=== PATIENT | male | born 1970 ===

== ENCOUNTER 2017-06-14 07:31 | Inpatient (IN) | payer MEDICARE, OTHER ==
[2017-06-14 07:32] VITALS: BMI 19.5
[2017-06-14] MEDS ORDERED: Sodium Chloride 0.9% 1,000 ML IV ONE ×3 (07:45→20:00)
[2017-06-14 08:11] LABS: BASO # 0.1 K/uL (0.0-0.2); BASO % 0.3 % (0.0-2.0); EOS # 0.5 K/uL (0.0-0.7); HEMATOCRIT 46.4 % (35.0-51.0); LYMPH # 0.6 K/uL (1.0-4.3); LYMPH % 2.8 % (20.0-40.0); MEAN CELL VOLUME 84.6 fL (80.0-94.0); MEAN CORPUSCULAR HGB CONC 33.1 g/dL (33.0-37.0); MEAN PLATELET VOLUME 8.5 fL (7.2-11.7); MONO # 1.3 K/uL (0.0-0.8); MONO % 5.7 % (0.0-10.0); NRBC % 0.1 % (0.0-2.0); PLATELET COUNT 290 K/uL (130-400); RED CELL DISTRIBUTION WIDTH 14.9 % (11.5-14.5); WHITE BLOOD COUNT 22.7 K/uL (4.8-10.8)
[2017-06-14] MEDS ORDERED: Sodium Chloride 0.9% 1,000 ML ONE (08:14)
[2017-06-14] MEDS ORDERED: Iohexol 240 (50 ml) PO ONE (08:19)
[2017-06-14 08:21] LABS: POTASSIUM 4.4 mmol/L (3.6-5.2)
[2017-06-14] MEDS ORDERED: Iohexol 240 (50 ml) ONE (08:22)
[2017-06-14 08:24] LABS: ALB/GLOB RATIO 1.2 (1.0-2.1); BILIRUBIN,TOTAL 0.8 mg/dL (0.2-1.3); CALCIUM 10.1 mg/dl (8.6-10.4); TOTAL PROTEIN 8.7 g/dL (6.3-8.3)
[2017-06-14 08:40] LABS: EOSINOPHIL 4 % (0-4); TOTAL CELLS COUNTED 100
[2017-06-14 08:41] LABS: NEUTROPHIL 79 % (50-75)
[2017-06-14] MEDS ORDERED: Lidocaine 2% Inj (20ml) ONE (10:26)
[2017-06-14] MEDS ORDERED: Iodixanol 320 MG/ML 100 ML BOTTLE IV ONE (10:26)
[2017-06-14 10:33] LABS: RBC URINE < 1 /hpf (0-3); URINE BILIRUBIN NEGATIVE (NEGATIVE); URINE BLOOD NEGATIVE (NEGATIVE); URINE COLOR Yellow (YELLOW); URINE GLUCOSE (UA) NORMAL (Normal); URINE KETONE NEGATIVE (NEGATIVE); URINE LEUKOCYTE ESTERASE NEG Leu/uL (Negative); URINE PROTEIN NEGATIVE (NEGATIVE); URINE UROBILINOGEN NORMAL mg/dL (0.2-1.0); WBC URINE < 1 /hpf (0-5)
--- NOTE | 2017-06-14 11:42 | CT ---
PROCEDURE: CT Abdomen and Pelvis with contrast HISTORY: abd pain - h/o liver transplant and ileostomy COMPARISON: Unenhanced and pelvis CT exam dated 09/13/2016. TECHNIQUE: Helical CT of the abdomen and pelvis was performed following oral contrast administration. Intravenous contrast was not administered as per referring physician request. Contrast dose: None Radiation dose: Total exam DLP = 200.41 mGy-cm. This CT exam was performed using one or more of the following dose reduction techniques: Automated exposure control, adjustment of the mA and/or kV according to patient size, and/or use of iterative reconstruction technique. FINDINGS: LOWER THORAX: Unremarkable. LIVER: No evidence to suggest cirrhosis. Overall size remains normal. Two Biliary stents are appreciated originating at the common hepatic duct region and terminating in the 2nd portion the duodenum in the interval. The portal vein remains prominent. GALLBLADDER AND BILE DUCTS: Likely surgically absent. Clinically correlate. PANCREAS: Unremarkable. No gross lesion or ductal dilatation. SPLEEN: Unremarkable. ADRENALS: Unremarkable. No mass. KIDNEYS AND URETERS: Unremarkable. No hydronephrosis. No solid mass. VASCULATURE: Unremarkable. No aortic aneurysm. BOWEL: Prior total colectomy again evident with right lower quadrant ileostomy. No suspicious bowel findings identified in the interval. APPENDIX: Status post total colectomy. PERITONEUM: Unremarkable. No free fluid. No free air. LYMPH NODES: Unremarkable. No enlarged lymph nodes. BLADDER: Unremarkable. REPRODUCTIVE: Unremarkable. BONES: No acute fracture. OTHER FINDINGS: None. IMPRESSION: No definite acute abdominal findings are appreciate in this limited exam given lack of intravenous contrast agents. There is no bowel obstruction status post total colectomy with functional right lower quadrant ileostomy. A passes small-bowel loops are stable in appearance. Interval double biliary stent placement as discussed above. Prior cholecystectomy suspected.
[2017-06-14] MEDS ORDERED: Piperacillin/Tazobact 3.375 GM in Sodium Chloride 100 ML IVPB STA (12:31)
--- NOTE | 2017-06-14 13:01 | C.PDOC ---
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 Pt states that he ate home cooked food last night. Otherwise, denies abdominal pain, fever, chest pain, shortness of breath, hematuria, or dysuria. Chief Complaint (Nursing): Abdominal Pain History Per: Patient History/Exam Limitations: no limitations Onset/Duration Of Symptoms: Hrs Current Symptoms Are (Timing): Still Present Severity: None Pain Scale Rating Of: 0 Radiation Of Pain To:: None Associated Symptoms: Nausea, Vomiting. denies: Fever, Chills, Diarrhea, Loss Of Appetite, Back Pain, Chest Pain, Constipation, Urinary Symptoms Exacerbating Factors: None Alleviating Factors: None Recent travel outside of the [place]: No Additional History Per: Patient Past Medical History Reviewed: Historical Data, Nursing Documentation, Vital Signs Vital Signs: Last Vital Signs Temp 98.2 F 06/14/17 17:04 Pulse 67 06/14/17 17:04 Resp 20 06/14/17 17:04 BP 93/59 L 06/14/17 17:04 Pulse Ox 98 06/14/17 17:04 - Medical History PMH: Anemia, Anxiety, Arthritis, Depression, Diabetes, Fractures (RIBS), HTN Denies: Chronic Kidney Disease Surgical History: Endoscopy - [facility] Procedures ATTACH PEDICLE GRAFT NEC (01/02/14) CLOSED ENDOSCOPIC BIOPSY OF LARGE INTESTINE (02/17/14) ENDOSC POLYPECTOMY OF LG INTEST (02/17/14) EXCIS DEBRIDE OF WOUND, INFECT, OR BURN (01/02/14) NONEXCIS DEBRID OF WOUND, INFECT, OR BURN (01/02/14) PACKED CELL TRANSFUSION (08/16/14) Family History: States: Unknown Family Hx - Social History Hx Tobacco Use: No Hx Alcohol Use: No Hx Substance Use: No - Immunization History Hx Tetanus Toxoid Vaccination: Yes Hx Influenza Vaccination: Yes Hx Pneumococcal Vaccination: Yes Review Of Systems Except As Marked, All Systems Reviewed And Found Negative. Constitutional: Negative for: Fever, Chills Cardiovascular: Negative for: Chest Pain, Palpitations Respiratory: Negative for: Cough, Shortness of Breath Gastrointestinal: Positive for: Nausea, Vomiting. Negative for: Abdominal Pain , Diarrhea, Constipation, Hematemesis Genitourinary: Negative for: Dysuria, Frequency, Hematuria Musculoskeletal: Negative for: Back Pain Physical Exam - Physical Exam Appears: Non-toxic, No Acute Distress Skin: Normal Color, Warm, Dry Head: Atraumatic, Normacephalic Eye(s): bilateral: Normal Inspection Oral Mucosa: Moist Neck: Normal ROM, Supple Chest: Symmetrical Cardiovascular: Rhythm Regular, No Murmur Respiratory: Normal Breath Sounds, No Rales, No Rhonchi, No Wheezing Gastrointestinal/Abdominal: Soft, No Tenderness, Other (ileostomy bag intact, no surrounding erythema) Back: No CVA Tenderness Extremity: Normal ROM Neurological/Psych: Oriented x3, Normal Speech, Normal Cognition ED Course And Treatment - Laboratory Results Result Diagrams: 06/14/17 08:05 06/14/17 08:05 ECG: Interpreted By Me, Viewed By Me ECG Rhythm: Sinus Rhythm ECG Interpretation: No Acute Changes Interpretation Of ECG: Normal axis. Normal intervals. Rate From EC (bpm) O2 Sat by Pulse Oximetry: 94 - CT Scan/US Abd & Pelvis CT Other Rad Studies (CT/US): Read By Radiologist, Radiology Report Reviewed CT/US Interpretation: Accession No. : [id number]. Patient Name / ID : ALEISHA Mejias / [id number]. Exam Date : 06/14/2017 10:47:39 ( Approved ). Study Comment : Sex / Age : M / 46Y. Creator : Evan Calhoun MD. Dictator : Evan Calhoun MD. Plumber Cub : Cut Off Machine Helper : Evan Calhoun MD. Approver2 : Report Date : 06/14/2017 11:40:47. My Comment : . PROCEDURE: CT Abdomen and Pelvis with contrast. HISTORY: abd pain - h/o liver transplant and ileostomy. COMPARISON: Unenhanced and pelvis CT exam dated 09/13/2016. TECHNIQUE: Helical CT of the abdomen and pelvis was performed following oral contrast administration. Intravenous contrast was not administered as per referring physician request. Contrast dose: None. Radiation dose: Total exam DLP = 200.41 mGy-cm. This CT exam was performed using one or more of the following dose reduction techniques: Automated exposure control, adjustment of the mA and/or kV according to patient size, and/ or use of iterative reconstruction technique. FINDINGS: LOWER THORAX: Unremarkable. LIVER: No evidence to suggest cirrhosis. Overall size remains normal. Two Biliary stents are appreciated originating at the common hepatic duct region and terminating in the 2nd portion the duodenum in the interval. The portal vein remains prominent. GALLBLADDER AND BILE DUCTS: Likely surgically absent. Clinically correlate. PANCREAS: Unremarkable. No gross lesion or ductal dilatation. SPLEEN: Unremarkable. ADRENALS: Unremarkable. No mass. KIDNEYS AND URETERS: Unremarkable. No hydronephrosis. No solid mass. VASCULATURE: Unremarkable. No aortic aneurysm. BOWEL: Prior total colectomy again evident with right lower quadrant ileostomy. No suspicious bowel findings identified in the interval. APPENDIX: Status post total colectomy. PERITONEUM: Unremarkable. No free fluid. No free air. LYMPH NODES : Unremarkable. No enlarged lymph nodes. BLADDER: Unremarkable. REPRODUCTIVE : Unremarkable. BONES: No acute fracture. OTHER FINDINGS: None. IMPRESSION : No definite acute abdominal findings are appreciate in this limited exam given lack of intravenous contrast agents. There is no bowel obstruction status post total colectomy with functional right lower quadrant ileostomy. A passes small-bowel loops are stable in appearance. Interval double biliary stent placement as discussed above. Prior cholecystectomy suspected. Medical Decision Making Medical Decision Making: Blood work, urinalysis, EKG, Abd & Pelvis CT scan ordered and reviewed. Patient was given Omnipaque, Pepcid, Zofran, and IV fluids. Case discussed with Dr. Yamilet Koch, covering for Dr. Bradford, was made aware of elevated WBC and bandemia. Will give Antibiotics and admit under Dr. Yamilet Koch. Disposition - Disposition Disposition: HOSPITALIZED Disposition Time: 12:20 Condition: STABLE - Clinical Impression Clinical Impression: Vomiting, Leukocytosis - Scribe Statement The provider has reviewed the documentation as recorded by the Letty Koch All medical record entries made by the Anastasiiaible were at my direction and personally dictated by me. I have reviewed the chart and agree that the record accurately reflects my personal performance of the history, physical exam, medical decision making, and the department course for this patient. I have also personally directed, reviewed, and agree with the discharge instructions and disposition.
[2017-06-14] MEDS ORDERED: Piperacillin/Tazobact 3.375 gm 100 ML IVPB ONE (13:02)
[2017-06-14 15:02] VITALS: RESP 20
--- NOTE | 2017-06-14 18:57 | CP.PCM.HP ---
Present on Admission - Present on Admission Any Indicators Present on Admission: No Past Patient History - Infectious Disease Hx of Infectious Diseases: None - Past Medical History & Family History Past Medical History?: Yes - Past Social History Smoking Status: Never Smoked - CARDIAC Hx Hypertension: Yes - PULMONARY Hx Respiratory Disorders: No - NEUROLOGICAL Hx Neurological Disorder: No - HEENT Hx HEENT Problems: No - RENAL Hx Chronic Kidney Disease: No - ENDOCRINE/METABOLIC Hx Endocrine Disorders: Yes Hx Diabetes Mellitus Type 1: Yes - HEMATOLOGICAL/ONCOLOGICAL Hx Anemia: Yes - INTEGUMENTARY Hx Dermatological Problems: No - MUSCULOSKELETAL/RHEUMATOLOGICAL Hx Arthritis: Yes Hx Fractures: Yes (RIBS) - GASTROINTESTINAL Hx Gastrointestinal Disorders: Yes Hx Colitis: Yes (DX. 10 YEARS AGO) Hx Liver Failure: Yes Other/Comment: ulcerative colitis - GENITOURINARY/GYNECOLOGICAL Hx Genitourinary Disorders: No - PSYCHIATRIC Hx Anxiety: Yes Hx Depression: Yes Hx Substance Use: No - SURGICAL HISTORY Hx Bile Duct Stent: Yes Hx Liver Transplant: Yes Other/Comment: illeostomy - ANESTHESIA Hx Anesthesia: Yes Hx Anesthesia Reactions: No Hx Malignant Hyperthermia: No Meds Allergies/Adverse Reactions: Allergies Allergy/AdvReac Type Severity Reaction Status Date / Time No Known Allergies Allergy Verified 09/13/16 05:57 Physical Exam - Constitutional Appears: Well - Head Exam Head Exam: ATRAUMATIC, NORMAL INSPECTION, NORMOCEPHALIC - Eye Exam Eye Exam: EOMI, Normal appearance, PERRL Pupil Exam: NORMAL ACCOMODATION, PERRL - ENT Exam ENT Exam: Mucous Membranes Moist, Normal Exam - Neck Exam Neck exam: Positive for: Normal Inspection - Respiratory Exam Respiratory Exam: Decreased Breath Sounds - Cardiovascular Exam Cardiovascular Exam: REGULAR RHYTHM, +S1, +S2 - GI/Abdominal Exam GI & Abdominal Exam: Diminished Bowel Sounds, Soft - Rectal Exam Rectal Exam: Deferred Results - Vital Signs Recent Vital Signs: Last Vital Signs Temp 98.2 F 06/14/17 17:04 Pulse 67 06/14/17 17:04 Resp 20 06/14/17 17:04 BP 93/59 L 06/14/17 17:04 Pulse Ox 94 L 06/14/17 18:35 - Labs Result Diagrams: 06/14/17 08:05 06/14/17 08:05 Labs: Laboratory Results - last 24 hr 06/14/17 06/14/17 06/14/17 07:49 08:05 08:05 WBC 22.7 H RBC 5.48 Hgb 15.4 Hct 46.4 MCV 84.6 D MCH 28.0 MCHC 33.1 RDW 14.9 H Plt Count 290 MPV 8.5 Neut % (Auto) 89.2 H Lymph % (Auto) 2.8 L [place] % (Auto) 5.7 Eos % (Auto) 2.0 Baso % (Auto) 0.3 Neut # 20.2 H Lymph # 0.6 L [place] # 1.3 H Eos # 0.5 Baso # 0.1 Neutrophils % (Manual) 79 H Band Neutrophils % 12 H* Lymphocytes % (Manual) 2 L Monocytes % (Manual) 3 Eosinophils % (Manual) 4 Platelet Estimate Normal RBC Morphology Normal Sodium 138 Potassium 4.4 Chloride 102 Carbon Dioxide 21 L Anion Gap 19 BUN 37 H Creatinine 1.7 H Est GFR ( Amer) 53 Est GFR (Non-Af Amer) 43 POC Glucose (mg/dL) 171 H Random Glucose 145 H Calcium 10.1 Total Bilirubin 0.8 AST 69 H ALT 85 H Alkaline Phosphatase 143 H Total Protein 8.7 H Albumin 4.8 Globulin 4.0 H Albumin/Globulin Ratio 1.2 Lipase 130 Urine Color Urine Clarity Urine pH Ur Specific [place] Urine Protein Urine Glucose (UA) Urine Ketones Urine Blood Urine Nitrate Urine Bilirubin Urine Urobilinogen Ur Leukocyte Esterase Urine WBC (Auto) Urine RBC (Auto) 06/14/17 06/14/17 10:18 16:44 WBC RBC Hgb Hct MCV MCH MCHC RDW Plt Count MPV Neut % (Auto) Lymph % (Auto) [place] % (Auto) Eos % (Auto) Baso % (Auto) Neut # Lymph # [place] # Eos # Baso # Neutrophils % (Manual) Band Neutrophils % Lymphocytes % (Manual) Monocytes % (Manual) Eosinophils % (Manual) Platelet Estimate RBC Morphology Sodium Potassium Chloride Carbon Dioxide Anion Gap BUN Creatinine Est GFR ( Amer) Est GFR (Non-Af Amer) POC Glucose (mg/dL) 145 H Random Glucose Calcium Total Bilirubin AST ALT Alkaline Phosphatase Total Protein Albumin Globulin Albumin/Globulin Ratio Lipase Urine Color Yellow Urine Clarity Clear Urine pH 5.0 Ur Specific [place] 1.012 Urine Protein Negative Urine Glucose (UA) Normal Urine Ketones Negative Urine Blood Negative Urine Nitrate Negative Urine Bilirubin Negative Urine Urobilinogen Normal Ur Leukocyte Esterase Neg Urine WBC (Auto) < 1 Urine RBC (Auto) < 1 Assessment & Plan - Assessment and Plan (Free Text) Plan: This Protonix Lovenox Prograf CellCept Prednisone Patient started on the dosing source of infection is not clear possible gastroenteritis ID consult GI consult Continue same We will monitor the LFT As ordered
[2017-06-14] MEDS ORDERED: Piperacillin/Tazobact 3.375 GM in Sodium Chloride 100 ML IVPB SCH (19:00)
[2017-06-14] MEDS ORDERED: Sodium Chloride 0.9% 500 ML IV ONE (19:11)
[2017-06-14] MEDS: Piperacill/Tazo 3.375gm in Dex 3.375 GM/50 ML BAG IVPB SCH (21:06)
[2017-06-14] MEDS: Insulin Detemir 100 units/ml Vial (Levemir) SC SCH (21:14)
[2017-06-14] MEDS: (Novolog) Insulin Aspart, Recombinant 100 u/ml 10 ml vial SC SCH (21:15)
[2017-06-15] MEDS: Piperacill/Tazo 3.375gm in Dex 3.375 GM/50 ML BAG IVPB SCH ×3 (05:40→22:10)
[2017-06-15 07:01] LABS: BASO % 0.2 % (0.0-2.0); EOS # 0.2 K/uL (0.0-0.7); EOS % 1.3 % (0.0-4.0); HEMATOCRIT 37.9 % (35.0-51.0); LYMPH # 0.8 K/uL (1.0-4.3); LYMPH % 6.4 % (20.0-40.0); MEAN CELL VOLUME 84.7 fL (80.0-94.0); MEAN CORPUSCULAR HGB CONC 33.1 g/dL (33.0-37.0); MEAN PLATELET VOLUME 8.4 fL (7.2-11.7); MONO # 0.5 K/uL (0.0-0.8); MONO % 4.1 % (0.0-10.0); PLATELET COUNT 213 K/uL (130-400); RED CELL DISTRIBUTION WIDTH 14.6 % (11.5-14.5); WHITE BLOOD COUNT 12.7 K/uL (4.8-10.8)
[2017-06-15 07:10] LABS: POTASSIUM 4.2 mmol/L (3.6-5.2)
[2017-06-15 07:12] LABS: BILIRUBIN,DIRECT 0.2 mg/dL (0.0-0.4); BILIRUBIN,TOTAL 0.7 mg/dL (0.2-1.3); CALCIUM 8.6 mg/dl (8.6-10.4); TOTAL PROTEIN 6.8 g/dL (6.3-8.3)
[2017-06-15] MEDS: (Novolog) Insulin Aspart, Recombinant 100 u/ml 10 ml vial SC SCH ×4 (08:19→22:12)
[2017-06-15 09:09] LABS: NEUTROPHIL 78 % (50-75); TOTAL CELLS COUNTED 100
[2017-06-15 09:11] LABS: LARGE PLATELETS PRESENT
[2017-06-15] MEDS: Pantoprazole 40 mg EC Tab PO SCH (09:57)
[2017-06-15] MEDS: Enoxaparin 40 mg Syringe SC SCH ×2 (09:58→10:03)
[2017-06-15] MEDS ORDERED: (Novolog) Insulin Aspart, Recombinant 100 u/ml 10 ml vial SC SCH (10:00)
--- NOTE | 2017-06-15 10:49 | CP.PCM.CON ---
History of Present Illness - History of Present Illness History of Present Illness: ASked to see pt for vomiting. Pt has h/o Ulc colitis, colectomy, Wilsons liver disease- liver transplant- Presents with 2 days nausea and vomiting. Mild mid abdom pain.- constant,. Ate food prepared by someone else .Sees Dr Alexandra at [facility] for liver. Review of Systems - Constitutional Constitutional: absent: Chills, Excessive Sweating, Fever, Increased Appetite, Lethargy, Weight Gain - EENT Nose/Mouth/Throat: absent: Epistaxis, Dental Pain - Cardiovascular Cardiovascular: absent: Chest Pain, Dyspnea - Respiratory Respiratory: absent: Dyspnea, Hemoptysis, Wheezing - Gastrointestinal Gastrointestinal: Change in Bowel Habits, Nausea, Vomiting. absent: Heartburn, Hematemesis, Hematochezia, Loose Stools - Genitourinary Genitourinary: absent: Hematuria - Musculoskeletal Musculoskeletal: absent: Muscle Cramps - Integumentary Integumentary: absent: Rash, Jaundice - Neurological Neurological: absent: Convulsions - Psychiatric Psychiatric: absent: Hallucinations Past Patient History - Infectious Disease Hx of Infectious Diseases: None - Past Medical History & Family History Past Medical History?: Yes - Past Social History Smoking Status: Never Smoked - CARDIAC Hx Cardiac Disorders: No - PULMONARY Hx Respiratory Disorders: No - NEUROLOGICAL Hx Neurological Disorder: No - HEENT Hx HEENT Problems: No - RENAL Hx Chronic Kidney Disease: No - ENDOCRINE/METABOLIC Hx Endocrine Disorders: Yes Hx Diabetes Mellitus Type 1: Yes - HEMATOLOGICAL/ONCOLOGICAL Hx Anemia: Yes - INTEGUMENTARY Hx Dermatological Problems: No - MUSCULOSKELETAL/RHEUMATOLOGICAL Hx Falls: No Hx Fractures: Yes (RIBS) - GASTROINTESTINAL Hx Gastrointestinal Disorders: Yes Hx Colitis: Yes (DX. 10 YEARS AGO) Hx Ileostomy: Yes (2016) Hx Liver Failure: Yes Other/Comment: ulcerative colitis - GENITOURINARY/GYNECOLOGICAL Hx Genitourinary Disorders: No - PSYCHIATRIC Hx Psychophysiologic Disorder: No Hx Substance Use: No - SURGICAL HISTORY Hx Bile Duct Stent: Yes Hx Liver Transplant: Yes (22 yrs ago) Other/Comment: illeostomy - ANESTHESIA Hx Anesthesia: Yes Hx Anesthesia Reactions: No Hx Malignant Hyperthermia: No Meds Allergies/Adverse Reactions: Allergies Allergy/AdvReac Type Severity Reaction Status Date / Time No Known Allergies Allergy Verified 09/13/16 05:57 - Medications Medications: Current Medications Enoxaparin Sodium (Lovenox) 40 mg SC DAILY [facility] Last Admin: 06/15/17 10:03 Dose: Not Given Piperacillin Sod/Tazobactam Sod (Zosyn 3.375 Gm Iv Premix) 3.375 gm in 50 mls @ 100 mls/hr IVPB Q8 [facility] Last Admin: 06/15/17 05:40 Dose: 100 mls/hr Insulin Aspart (Novolog) 0 unit SC [facility] PRN Reason: Protocol Last Admin: 06/15/17 08:19 Dose: Not Given Insulin Detemir (Levemir) 10 unit SC [facility] Last Admin: 06/14/17 21:14 Dose: Not Given Mycophenolate Mofetil (Cellcept) 1,000 mg PO BID [facility] Last Admin: 06/15/17 09:55 Dose: 1,000 mg Pantoprazole Sodium (Protonix Ec Tab) 40 mg PO DAILY [facility] Last Admin: 06/15/17 09:57 Dose: 40 mg Prednisone (Prednisone Tab) 6 mg PO DAILY [facility] Last Admin: 06/15/17 09:56 Dose: 6 mg Tacrolimus (Prograf Cap) 3 mg PO HS [facility] Last Admin: 06/14/17 21:06 Dose: 3 mg Tacrolimus (Prograf Cap) 4 mg PO DAILY [facility] Last Admin: 06/15/17 09:56 Dose: 4 mg Physical Exam - Constitutional Appears: Well - Respiratory Exam Respiratory Exam: Clear to Auscultation Bilateral - Cardiovascular Exam Cardiovascular Exam: RRR - GI/Abdominal Exam GI & Abdominal Exam: Normal Bowel Sounds, Soft. absent: Distended, Guarding, Rebound, Rigid, Tenderness Additional comments: Ostomy present. - Extremities Exam Extremities exam: Negative for: calf tenderness - Neurological Exam Neurological exam: Alert, Oriented x3 Results - Vital Signs Recent Vital Signs: Last Vital Signs Temp 97.6 F 06/15/17 07:54 Pulse 60 06/15/17 07:54 Resp 20 06/15/17 07:54 BP 116/72 06/15/17 07:54 Pulse Ox 100 06/15/17 07:54 - Labs Result Diagrams: 06/15/17 06:55 06/15/17 06:55 Labs: Laboratory Results - last 24 hr 06/14/17 06/14/17 06/15/17 16:44 21:14 06:55 WBC 12.7 H RBC 4.47 Hgb 12.6 D Hct 37.9 MCV 84.7 MCH 28.0 MCHC 33.1 RDW 14.6 H Plt Count 213 MPV 8.4 Neut % (Auto) 88.0 H Lymph % (Auto) 6.4 L [place] % (Auto) 4.1 Eos % (Auto) 1.3 Baso % (Auto) 0.2 Neut # 11.2 H Lymph # 0.8 L [place] # 0.5 Eos # 0.2 Baso # 0.0 Neutrophils % (Manual) 78 H Band Neutrophils % 1 Lymphocytes % (Manual) 15 L Monocytes % (Manual) 6 Platelet Estimate Normal Large Platelets Present Anisocytosis (manual) Slight Sodium Potassium Chloride Carbon Dioxide Anion Gap BUN Creatinine Est GFR ( Amer) Est GFR (Non-Af Amer) POC Glucose (mg/dL) 145 H 117 H Random Glucose Calcium Total Bilirubin Direct Bilirubin AST ALT Alkaline Phosphatase Total Protein Albumin Globulin Albumin/Globulin Ratio 06/15/17 06/15/17 06:55 07:11 WBC RBC Hgb Hct MCV MCH MCHC RDW Plt Count MPV Neut % (Auto) Lymph % (Auto) [place] % (Auto) Eos % (Auto) Baso % (Auto) Neut # Lymph # [place] # Eos # Baso # Neutrophils % (Manual) Band Neutrophils % Lymphocytes % (Manual) Monocytes % (Manual) Platelet Estimate Large Platelets Anisocytosis (manual) Sodium 138 Potassium 4.2 Chloride 106 Carbon Dioxide 18 L Anion Gap 18 BUN 33 H Creatinine 1.7 H Est GFR ( Amer) 53 Est GFR (Non-Af Amer) 43 POC Glucose (mg/dL) 145 H Random Glucose 128 H Calcium 8.6 Total Bilirubin 0.7 Direct Bilirubin 0.2 AST 34 ALT 70 Alkaline Phosphatase 97 Total Protein 6.8 Albumin 3.5 D Globulin 3.4 Albumin/Globulin Ratio 1.0 Assessment & Plan (1) Wilsons disease Assessment and Plan: s/p liver transplant. On anti-rejection meds. Followed at [facility]. Status: Acute (2) Leukocytosis Assessment and Plan: Consider gastroenteritis. Status: Acute (3) Vomiting Assessment and Plan: Gastroenteritis. Status: Acute (4) Abdominal pain Assessment and Plan: Not significant. Status: Acute (5) Anemia Status: Acute (6) Colitis Assessment and Plan: H/o ulc colitis and colectomy Status: Acute
--- NOTE | 2017-06-15 18:52 | CP.PCM.PN ---
Subjective - Date & Time of Evaluation Date of Evaluation: 06/15/17 Time of Evaluation: 07:20 - Subjective Subjective: clinically same Objective - Vital Signs/Intake and Output Vital Signs (last 24 hours): Temp Pulse Resp BP Pulse Ox 98.6 F 76 20 122/78 99 06/15/17 15:00 06/15/17 15:00 06/15/17 15:00 06/15/17 15:00 06/15/17 15:00 - Medications Medications: Current Medications Enoxaparin Sodium (Lovenox) 40 mg SC DAILY [facility] Last Admin: 06/15/17 10:03 Dose: Not Given Piperacillin Sod/Tazobactam Sod (Zosyn 3.375 Gm Iv Premix) 3.375 gm in 50 mls @ 100 mls/hr IVPB Q8 [facility] Last Admin: 06/15/17 13:38 Dose: 100 mls/hr Insulin Aspart (Novolog) 0 unit SC ACHS [facility] PRN Reason: Protocol Last Admin: 06/15/17 17:40 Dose: 1 unit Insulin Detemir (Levemir) 10 unit SC HS [facility] Last Admin: 06/14/17 21:14 Dose: Not Given Mycophenolate Mofetil (Cellcept) 1,000 mg PO BID [facility] Last Admin: 06/15/17 17:40 Dose: 1,000 mg Pantoprazole Sodium (Protonix Ec Tab) 40 mg PO DAILY [facility] Last Admin: 06/15/17 09:57 Dose: 40 mg Prednisone (Prednisone Tab) 6 mg PO DAILY [facility] Last Admin: 06/15/17 09:56 Dose: 6 mg Tacrolimus (Prograf Cap) 3 mg PO HS [facility] Last Admin: 06/14/17 21:06 Dose: 3 mg Tacrolimus (Prograf Cap) 4 mg PO DAILY [facility] Last Admin: 06/15/17 09:56 Dose: 4 mg - Labs Labs: 06/15/17 06:55 06/15/17 06:55
[2017-06-15] MEDS: Insulin Detemir 100 units/ml Vial (Levemir) SC SCH (22:11)
[2017-06-16] MEDS: Piperacill/Tazo 3.375gm in Dex 3.375 GM/50 ML BAG IVPB SCH ×3 (06:30→21:42)
[2017-06-16] MEDS: (Novolog) Insulin Aspart, Recombinant 100 u/ml 10 ml vial SC SCH ×4 (07:50→21:41)
[2017-06-16] MEDS: Enoxaparin 40 mg Syringe SC SCH (10:01)
[2017-06-16] MEDS: Pantoprazole 40 mg EC Tab PO SCH (10:11)
--- NOTE | 2017-06-16 10:21 | CP.PCM.PN ---
Subjective - Date & Time of Evaluation Date of Evaluation: 06/16/17 Time of Evaluation: 09:50 - Subjective Subjective: F/U vomiting. Feels better. Sid is seen with RN. Morel naus, vomiting, SZ, LOC, [place], cough, RB, melena, abdom pain,fever, chills, Objective - Vital Signs/Intake and Output Vital Signs (last 24 hours): Temp Pulse Resp BP Pulse Ox 98.1 F 59 L 20 119/71 100 06/16/17 00:00 06/16/17 00:00 06/16/17 00:00 06/16/17 00:00 06/16/17 00:00 Intake and Output: 06/16/17 06/16/17 06:59 18:59 Intake Total 700 Output Total 220 Balance 480 - Medications Medications: Current Medications Enoxaparin Sodium (Lovenox) 40 mg SC DAILY [facility] Last Admin: 06/16/17 10:01 Dose: Not Given Piperacillin Sod/Tazobactam Sod (Zosyn 3.375 Gm Iv Premix) 3.375 gm in 50 mls @ 100 mls/hr IVPB Q8 [facility] Last Admin: 06/16/17 06:30 Dose: 100 mls/hr Insulin Aspart (Novolog) 0 unit SC [facility] PRN Reason: Protocol Last Admin: 06/16/17 07:50 Dose: Not Given Insulin Detemir (Levemir) 10 unit SC [facility] Last Admin: 06/15/17 22:11 Dose: 10 unit Mycophenolate Mofetil (Cellcept) 1,000 mg PO BID [facility] Last Admin: 06/16/17 10:11 Dose: 1,000 mg Pantoprazole Sodium (Protonix Ec Tab) 40 mg PO DAILY [facility] Last Admin: 06/16/17 10:11 Dose: 40 mg Pneumococcal Polyvalent Vaccine (Pneumovax 23 Vaccine) 0.5 ml IM .ONCE ONE Stop: 06/17/17 10:01 Prednisone (Prednisone Tab) 6 mg PO DAILY [facility] Tacrolimus (Prograf Cap) 3 mg PO HS [facility] Last Admin: 06/15/17 22:10 Dose: 3 mg Tacrolimus (Prograf Cap) 4 mg PO DAILY [facility] Last Admin: 06/16/17 10:10 Dose: 4 mg - Labs Labs: 06/15/17 06:55 06/15/17 06:55 - Constitutional Appears: Well - Neck Exam Neck Exam: absent: Tenderness - Respiratory Exam Respiratory Exam: Clear to Ausculation Bilateral - Cardiovascular Exam Cardiovascular Exam: RRR - GI/Abdominal Exam GI & Abdominal Exam: Soft, Normal Bowel Sounds. absent: Tenderness Additional comments: Ostomy noted. - Extremities Exam Extremities Exam: absent: Calf Tenderness - Neurological Exam Neurological Exam: Alert, Oriented x3 Assessment and Plan (1) Wilsons disease Assessment & Plan: Liver transplant Status: Acute (2) Leukocytosis Assessment & Plan: Inproving Status: Acute (3) Vomiting Assessment & Plan: Gastroenteritis. Improving Status: Acute (4) Abdominal pain Assessment & Plan: Better Status: Acute (5) Anemia Status: Acute (6) Colitis Assessment & Plan: H/o UC. s/p colon surgery and ostomy. Status: Acute
--- NOTE | 2017-06-16 15:32 | CP.PCM.CON ---
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 Pt states that he ate home cooked food last night. Otherwise, denies abdominal pain, fever, chest pain, shortness of breath, hematuria, or dysuria. - Medical History PMH: Anemia, Anxiety, Arthritis, Depression, Diabetes, Fractures (RIBS), HTN Denies: Chronic Kidney Disease Surgical History: Endoscopy - [facility] Procedures ATTACH PEDICLE GRAFT NEC (01/02/14) CLOSED ENDOSCOPIC BIOPSY OF LARGE INTESTINE (02/17/14) ENDOSC POLYPECTOMY OF LG INTEST (02/17/14) EXCIS DEBRIDE OF WOUND, INFECT, OR BURN (01/02/14) NONEXCIS DEBRID OF WOUND, INFECT, OR BURN (01/02/14) PACKED CELL TRANSFUSION (08/16/14) Review of Systems - Constitutional Constitutional: As Per HPI - EENT Eyes: absent: As Per HPI, Blind Spots, Blurred Vision, Change in Vision, Decreased Night Vision, Diplopia, Discharge, Dry Eye, Exophthalmos, Floaters, Irritation, Itchy Eyes, Loss of Peripheral Vision, Pain, Photophobia, Requires Corrective Lenses, Sees Flashes, Spots in Vision, Tunnel Vision, Other Visual Disturbances, Loss of Vision, Other Ears: absent: As Per HPI, Decreased Hearing, Ear Discharge, Ear Pain, Tinnitus, Abnormal Hearing, Disequilibrium, Dizziness, Other Nose/Mouth/Throat: absent: As Per HPI, Epistaxis, Nasal Congestion, Nasal Discharge, Nasal Obstruction, Nasal Trauma, Nose Pain, Post Nasal Drip, Sinus Pain, Sinus Pressure, Bleeding Gums, Change in Voice, Dental Pain, Dry Mouth, Dysphagia, Halitosis, Hoarsness, Lip Swelling, Mouth Lesions, Mouth Pain, Odynophagia, Sore Throat, Throat Swelling, Tongue Swelling, Facial Pain, Neck Pain, Neck Mass, Other - Cardiovascular Cardiovascular: absent: As Per HPI, Acrocyanosis, Chest Pain, Chest Pain at Rest , Chest Pain with Activity, Claudication, Diaphoresis, Dyspnea, Dyspnea on Exertion, Edema, Irregular Heart Rhythm, Pain Radiating to Arm/Neck/Jaw, Leg Edema, Leg Ulcers, Lightheadedness, Orthopnea, Palpitations, Paroxysmal Nocturnal Dyspnea, Pedal Edema, Radiating Pain, Rapid Heart Rate, Slow Heart Rate, Syncope, Other - Respiratory Respiratory: absent: As Per HPI, Cough, Dyspnea, Hemoptysis, Dyspnea on Exertion , Wheezing, Snoring, Stridor, Pain on Inspiration, Chest Congestion, Excessive Mucous Production, Change in Mucous Color, Pain with Coughing, Other - Gastrointestinal Gastrointestinal: As Per HPI - Genitourinary Genitourinary: absent: As Per HPI, Change in Urinary Stream, Difficulty Urinating, Dysuria, Flank Pain, Hematuria, Pyuria, Nocturia, Urinary Incontinence, Urinary Frequency, Urinary Hesitance, Urinary Urgency, Voiding Freq/Small Amts, Freq UTI, Hx Renal/Bladder Calculi, Hx /Renal Surgery, Bladder Distension, Other - Musculoskeletal Musculoskeletal: absent: As Per HPI, Abnormal Gait, Arthralgias, Atrophy, Back Pain, Deformity, Joint Swelling, Limited Range of Motion, Loss of Height, Muscle Cramps, Muscle Weakness, Myalgias, Neck Pain, Numbness, Radiating Pain into Limb, Stiffness, Tingling, Other - Integumentary Integumentary: absent: As Per HPI, Acne, Alopecia, Bleeding Lesions, Change in Hair, Change in Nails, Change in Pigmentation, Changing Lesions, Dry Skin, Erythema, Furuncle, Hirsutism, Lesions, New Lesions, Non-Healing Lesions, Photosensitivity, Pruritus, Rash, Skin Pain, Skin Ulcer, Sores, Striae, Swelling , Unusual Bruising, Wounds, Jaundice, Other - Neurological Neurological: absent: As Per HPI, Abnormal Gait, Abnormal Hearing, Abnormal Movements, Abnormal Speech, Behavioral Changes, Burning Sensations, Confusion, Convulsions, Disequilibrium, Dizziness, Numbness, Focal Weakness, Frequent Falls , Headaches, Lack of Coordination, Loss of Vision, Memory Loss, Paresthesias, Radicular Pain, Restless Legs, Sensory Deficit, Syncope, Tingling, Tremor, Vertigo, Weakness, Other Visual Disturbances, Other - Psychiatric Psychiatric: absent: As Per HPI, Abnormal Sleep Pattern, Anhedonia, Anxiety, Auditory Hallucinations, Behavioral Changes, Change in Appetite, Change in Libido, Confusion, Depression, Difficulty Concentrating, Hallucinations, Homicidal Ideation, Hopelessness, Irritability, Memory Loss, Mood Swings, Panic Attacks, Paranoia, Suicidal Ideation, Visual Hallucinations, Tactile Hallucinations, Other - Endocrine Endocrine: absent: As Per HPI, Change in Body Appearance, Change in Libido, Cold Intolorance, Deepening of Voice, Excessive Sweating, Fatigue, Flushing, Heat Intolorance, Increase in Ring/Shoe/Hat Size, Palpitations, Polydipsia, Polyphagia, Polyuria, Other - Hematologic/Lymphatic Hematologic: absent: As Per HPI, Easy Bleeding, Easy Bruising, Lymphadenopathy, Other Past Patient History - Infectious Disease Hx of Infectious Diseases: None - Past Medical History & Family History Past Medical History?: Yes - Past Social History Smoking Status: Never Smoked - CARDIAC Hx Cardiac Disorders: No - PULMONARY Hx Respiratory Disorders: No - NEUROLOGICAL Hx Neurological Disorder: No - HEENT Hx HEENT Problems: No - RENAL Hx Chronic Kidney Disease: No - ENDOCRINE/METABOLIC Hx Endocrine Disorders: Yes Hx Diabetes Mellitus Type 1: Yes - HEMATOLOGICAL/ONCOLOGICAL Hx Anemia: Yes - INTEGUMENTARY Hx Dermatological Problems: No - MUSCULOSKELETAL/RHEUMATOLOGICAL Hx Falls: No Hx Fractures: Yes (RIBS) - GASTROINTESTINAL Hx Gastrointestinal Disorders: Yes Hx Colitis: Yes (DX. 10 YEARS AGO) Hx Ileostomy: Yes (2016) Hx Liver Failure: Yes Other/Comment: ulcerative colitis - GENITOURINARY/GYNECOLOGICAL Hx Genitourinary Disorders: No - PSYCHIATRIC Hx Psychophysiologic Disorder: No Hx Substance Use: No - SURGICAL HISTORY Hx Bile Duct Stent: Yes Hx Liver Transplant: Yes (22 yrs ago) Other/Comment: illeostomy - ANESTHESIA Hx Anesthesia: Yes Hx Anesthesia Reactions: No Hx Malignant Hyperthermia: No Meds Allergies/Adverse Reactions: Allergies Allergy/AdvReac Type Severity Reaction Status Date / Time No Known Allergies Allergy Verified 09/13/16 05:57 - Medications Medications: Current Medications Enoxaparin Sodium (Lovenox) 40 mg SC DAILY [facility] Last Admin: 06/16/17 10:01 Dose: Not Given Piperacillin Sod/Tazobactam Sod (Zosyn 3.375 Gm Iv Premix) 3.375 gm in 50 mls @ 100 mls/hr IVPB Q8 [facility] Last Admin: 06/16/17 13:23 Dose: 100 mls/hr Insulin Aspart (Novolog) 0 unit SC ACHS [facility] PRN Reason: Protocol Last Admin: 06/16/17 11:55 Dose: Not Given Insulin Detemir (Levemir) 10 unit SC HS [facility] Last Admin: 06/15/17 22:11 Dose: 10 unit Mycophenolate Mofetil (Cellcept) 1,000 mg PO BID [facility] Last Admin: 06/16/17 10:11 Dose: 1,000 mg Pantoprazole Sodium (Protonix Ec Tab) 40 mg PO DAILY [facility] Last Admin: 06/16/17 10:11 Dose: 40 mg Pneumococcal Polyvalent Vaccine (Pneumovax 23 Vaccine) 0.5 ml IM .ONCE ONE Stop: 06/17/17 10:01 Prednisone (Prednisone Tab) 10 mg PO DAILY [facility] Last Admin: 06/16/17 13:23 Dose: 10 mg Tacrolimus (Prograf Cap) 3 mg PO HS [facility] Last Admin: 06/15/17 22:10 Dose: 3 mg Tacrolimus (Prograf Cap) 4 mg PO DAILY [facility] Last Admin: 06/16/17 10:10 Dose: 4 mg Physical Exam - Constitutional Appears: Non-toxic, Chronically Ill - Head Exam Head Exam: NORMOCEPHALIC - Eye Exam Eye Exam: PERRL - ENT Exam ENT Exam: Mucous Membranes Dry, Normal External Ear Exam - Neck Exam Neck exam: Negative for: Lymphadenopathy - Respiratory Exam Respiratory Exam: Decreased Breath Sounds - Cardiovascular Exam Cardiovascular Exam: REGULAR RHYTHM, +S1, +S2 - GI/Abdominal Exam GI & Abdominal Exam: Diminished Bowel Sounds, Soft. absent: Tenderness - Rectal Exam Rectal Exam: Deferred - Exam Exam: NORMAL INSPECTION - Extremities Exam Extremities exam: Negative for: calf tenderness, pedal edema - Back Exam Back exam: absent: CVA tenderness (L), CVA tenderness (R) - Neurological Exam Neurological exam: Alert, CN II-XII Intact, Oriented x3, Reflexes Normal - Psychiatric Exam Psychiatric exam: Normal Mood - Skin Skin Exam: Dry Results - Vital Signs Recent Vital Signs: Last Vital Signs Temp 97.6 F 06/16/17 08:00 Pulse 64 06/16/17 08:00 Resp 20 06/16/17 08:00 BP 111/70 06/16/17 08:00 Pulse Ox 100 06/16/17 08:00 - Labs Result Diagrams: 06/15/17 06:55 06/15/17 06:55 Labs: Laboratory Results - last 24 hr 06/15/17 06/15/17 06/16/17 16:44 20:55 02:42 POC Glucose (mg/dL) 152 H 110 118 H 06/16/17 06/16/17 07:08 11:37 POC Glucose (mg/dL) 87 147 H Assessment & Plan (1) Leukocytosis Status: Acute (2) Wilsons disease Status: Acute (3) Abdominal pain Status: Acute - Assessment and Plan (Free Text) Assessment: cont iv antiibotics gi follow up dr carson
--- NOTE | 2017-06-16 19:33 | CP.PCM.PN ---
Subjective - Date & Time of Evaluation Date of Evaluation: 06/16/17 Time of Evaluation: 07:20 - Subjective Subjective: clinically same Objective - Vital Signs/Intake and Output Vital Signs (last 24 hours): Temp Pulse Resp BP Pulse Ox 97.4 F L 71 20 123/71 97 06/16/17 15:00 06/16/17 15:00 06/16/17 15:00 06/16/17 15:00 06/16/17 15:00 Intake and Output: 06/16/17 06/17/17 18:59 06:59 Intake Total 400 Balance 400 - Medications Medications: Current Medications Enoxaparin Sodium (Lovenox) 40 mg SC DAILY [facility] Last Admin: 06/16/17 10:01 Dose: Not Given Piperacillin Sod/Tazobactam Sod (Zosyn 3.375 Gm Iv Premix) 3.375 gm in 50 mls @ 100 mls/hr IVPB Q8 [facility] Last Admin: 06/16/17 13:23 Dose: 100 mls/hr Insulin Aspart (Novolog) 0 unit SC [facility] PRN Reason: Protocol Last Admin: 06/16/17 17:30 Dose: Not Given Insulin Detemir (Levemir) 10 unit SC HS [facility] Last Admin: 06/15/17 22:11 Dose: 10 unit Mycophenolate Mofetil (Cellcept) 1,000 mg PO BID [facility] Last Admin: 06/16/17 17:29 Dose: 1,000 mg Pantoprazole Sodium (Protonix Ec Tab) 40 mg PO DAILY [facility] Last Admin: 06/16/17 10:11 Dose: 40 mg Pneumococcal Polyvalent Vaccine (Pneumovax 23 Vaccine) 0.5 ml IM .ONCE ONE Stop: 06/17/17 10:01 Prednisone (Prednisone Tab) 10 mg PO DAILY [facility] Last Admin: 06/16/17 13:23 Dose: 10 mg Tacrolimus (Prograf Cap) 3 mg PO HS [facility] Last Admin: 06/15/17 22:10 Dose: 3 mg Tacrolimus (Prograf Cap) 4 mg PO DAILY [facility] Last Admin: 06/16/17 10:10 Dose: 4 mg - Labs Labs: 06/15/17 06:55 06/15/17 06:55 - Constitutional Appears: Well - Head Exam Head Exam: ATRAUMATIC, NORMAL INSPECTION, NORMOCEPHALIC - Eye Exam Eye Exam: EOMI, Normal appearance, PERRL Pupil Exam: NORMAL ACCOMODATION, PERRL - ENT Exam ENT Exam: Mucous Membranes Moist, Normal Exam - Neck Exam Neck Exam: Full ROM, Normal Inspection. absent: Lymphadenopathy - Respiratory Exam Respiratory Exam: Decreased Breath Sounds - Cardiovascular Exam Cardiovascular Exam: REGULAR RHYTHM, +S1, +S2 - GI/Abdominal Exam GI & Abdominal Exam: Soft, Diminished Bowel Sounds - Rectal Exam Rectal Exam: Deferred
[2017-06-16] MEDS: Insulin Detemir 100 units/ml Vial (Levemir) SC SCH (21:40)
[2017-06-17] MEDS: Piperacill/Tazo 3.375gm in Dex 3.375 GM/50 ML BAG IVPB SCH ×3 (05:59→14:44)
[2017-06-17 07:19] LABS: BASO % 0.2 % (0.0-2.0); EOS # 0.1 K/uL (0.0-0.7); EOS % 0.8 % (0.0-4.0); HEMATOCRIT 37.5 % (35.0-51.0); LYMPH # 1.3 K/uL (1.0-4.3); LYMPH % 11.1 % (20.0-40.0); MEAN CELL VOLUME 84.5 fL (80.0-94.0); MEAN CORPUSCULAR HEMOGLOBIN 28.2 pg (27.0-31.0); MEAN CORPUSCULAR HGB CONC 33.3 g/dL (33.0-37.0); MEAN PLATELET VOLUME 8.5 fL (7.2-11.7); MONO # 0.8 K/uL (0.0-0.8); MONO % 7.3 % (0.0-10.0); RED CELL DISTRIBUTION WIDTH 14.9 % (11.5-14.5); WHITE BLOOD COUNT 11.4 K/uL (4.8-10.8)
[2017-06-17] MEDS: (Novolog) Insulin Aspart, Recombinant 100 u/ml 10 ml vial SC SCH ×2 (07:58→11:56)
[2017-06-17 08:07] LABS: POTASSIUM 3.8 mmol/L (3.6-5.2)
[2017-06-17 08:09] LABS: BILIRUBIN,TOTAL 0.6 mg/dL (0.2-1.3)
[2017-06-17 08:10] LABS: ALB/GLOB RATIO 1.1 (1.0-2.1); CALCIUM 9.2 mg/dl (8.6-10.4); TOTAL PROTEIN 7.2 g/dL (6.3-8.3)
[2017-06-17 08:18] VITALS: BP 133/82; PULSE 50; TEMP 97.7; O2SAT 99
--- NOTE | 2017-06-17 09:08 | CP.PCM.PN ---
Subjective - Date & Time of Evaluation Date of Evaluation: 06/17/17 Time of Evaluation: 09:08 - Subjective Subjective: PGY-[address] Koch's Service: Pt seen and examined at bedside. Nursing reports no acute events overnight. Patient denies any recurrence of abdominal pain, nausea/vomiting for past twenty four hours. He further denies fever, chills, chest pain, SOB, dysuria. Objective - Vital Signs/Intake and Output Vital Signs (last 24 hours): Temp Pulse Resp BP Pulse Ox 97.7 F 50 L 20 133/82 99 06/17/17 08:17 06/17/17 08:17 06/17/17 08:17 06/17/17 08:17 06/17/17 08:17 Intake and Output: 06/17/17 06/17/17 06:59 18:59 Intake Total 800 Balance 800 - Medications Medications: Current Medications Enoxaparin Sodium (Lovenox) 40 mg SC DAILY [facility] Last Admin: 06/16/17 10:01 Dose: Not Given Piperacillin Sod/Tazobactam Sod (Zosyn 3.375 Gm Iv Premix) 3.375 gm in 50 mls @ 100 mls/hr IVPB Q8 [facility] Last Admin: 06/17/17 05:59 Dose: 100 mls/hr Insulin Aspart (Novolog) 0 unit SC ACHS [facility] PRN Reason: Protocol Last Admin: 06/17/17 07:58 Dose: Not Given Insulin Detemir (Levemir) 10 unit SC HS [facility] Last Admin: 06/16/17 21:40 Dose: 10 unit Mycophenolate Mofetil (Cellcept) 1,000 mg PO BID [facility] Last Admin: 06/16/17 17:29 Dose: 1,000 mg Pantoprazole Sodium (Protonix Ec Tab) 40 mg PO DAILY [facility] Last Admin: 06/16/17 10:11 Dose: 40 mg Pneumococcal Polyvalent Vaccine (Pneumovax 23 Vaccine) 0.5 ml IM .ONCE ONE Stop: 06/17/17 10:01 Prednisone (Prednisone Tab) 10 mg PO DAILY [facility] Last Admin: 06/16/17 13:23 Dose: 10 mg Tacrolimus (Prograf Cap) 3 mg PO HS [facility] Last Admin: 06/16/17 21:41 Dose: 3 mg Tacrolimus (Prograf Cap) 4 mg PO DAILY [facility] Last Admin: 06/16/17 10:10 Dose: 4 mg - Labs Labs: 06/17/17 07:04 06/17/17 07:04 - Constitutional Appears: Non-toxic, No Acute Distress - Head Exam Head Exam: ATRAUMATIC, NORMOCEPHALIC - Eye Exam Eye Exam: EOMI - ENT Exam ENT Exam: Mucous Membranes Moist, Normal Exam - Neck Exam Neck Exam: Normal Inspection - Respiratory Exam Respiratory Exam: Clear to Ausculation Bilateral, NORMAL BREATHING PATTERN. absent: Rhonchi, Wheezes - Cardiovascular Exam Cardiovascular Exam: REGULAR RHYTHM, +S1, +S2 - GI/Abdominal Exam GI & Abdominal Exam: Soft, Normal Bowel Sounds. absent: Tenderness Additional comments: Ostomy - functioning, brown stool noted - Extremities Exam Extremities Exam: Normal Capillary Refill, Normal Inspection - Neurological Exam Neurological Exam: Alert, Awake, Oriented x3 - Psychiatric Exam Psychiatric exam: Normal Affect, Normal Mood - Skin Skin Exam: Dry, Normal Color, Warm Assessment and Plan - Assessment and Plan (Free Text) Plan: Gastroenteritis Admitted to med/surg 06/14/17 Nausea, with multiple episodes vomiting WBC 22.7 on admission with bandemia and left shift -downtrending (11.4 today) Dr. Maldonado, GI software developer consultant: - gastroenteritis improving Dr. Pringle, ID software developer consultant: Zosyn 3.375gm IV Q8 Hx of Ulcerative Colitis Pt with history of colectomy, ostomy Hx of Jerome's Disease Transplant recipient on immunosuppressive therapy Cellcept 1000mg PO BID Tacrolimus 3mg PO HS, 4mg PO Daily Prednisone 10mg PO Daily Type Two DM BG slightly elevated since admission Levemir 10units SC HS [facility] Prophylaxis Pt refusing Lovenox 40mg SC Daily Protonix 40mg PO Daily SCDs Disposition: Pt for discharge today Theron Rene PGY-2 All medical management per Dr. Koch
[2017-06-17] MEDS ORDERED: Influenza Vaccine 60 mcg/0.5 mL SYR (4YR UP) IM ONE (10:00)
[2017-06-17] MEDS ORDERED: Pneumococcal 23-Valent Vaccine IM ONE ×2 (10:00)
[2017-06-17] MEDS: Pantoprazole 40 mg EC Tab PO SCH (10:15)
[2017-06-17] MEDS: Enoxaparin 40 mg Syringe SC SCH (10:16)
--- NOTE | 2017-06-17 11:57 | CP.PCM.PN ---
Subjective - Date & Time of Evaluation Date of Evaluation: 06/17/17 Time of Evaluation: 09:00 - Subjective Subjective: t max down alert nad Objective - Vital Signs/Intake and Output Vital Signs (last 24 hours): Temp Pulse Resp BP Pulse Ox 97.7 F 50 L 20 133/82 99 06/17/17 08:17 06/17/17 08:17 06/17/17 08:17 06/17/17 08:17 06/17/17 08:17 Intake and Output: 06/17/17 06/17/17 06:59 18:59 Intake Total 800 Balance 800 - Medications Medications: Current Medications Enoxaparin Sodium (Lovenox) 40 mg SC DAILY [facility] Last Admin: 06/17/17 10:16 Dose: Not Given Piperacillin Sod/Tazobactam Sod (Zosyn 3.375 Gm Iv Premix) 3.375 gm in 50 mls @ 100 mls/hr IVPB Q8 [facility] [place] Last Admin: 06/17/17 05:59 Dose: 100 mls/hr Insulin Aspart (Novolog) 0 unit SC ACHS [facility] [place] PRN Reason: Protocol Last Admin: 06/17/17 07:58 Dose: Not Given Insulin Detemir (Levemir) 10 unit SC HS [facility] [place] Last Admin: 06/16/17 21:40 Dose: 10 unit Mycophenolate Mofetil (Cellcept) 1,000 mg PO BID [facility] [place] Last Admin: 06/17/17 10:15 Dose: 1,000 mg Pantoprazole Sodium (Protonix Ec Tab) 40 mg PO DAILY [facility] [place] Last Admin: 06/17/17 10:15 Dose: 40 mg Prednisone (Prednisone Tab) 10 mg PO DAILY [facility] [place] Last Admin: 06/17/17 10:14 Dose: 10 mg Tacrolimus (Prograf Cap) 3 mg PO HS [facility] [place] Last Admin: 06/16/17 21:41 Dose: 3 mg Tacrolimus (Prograf Cap) 4 mg PO DAILY [facility] [place] Last Admin: 06/17/17 10:13 Dose: 4 mg - Labs Labs: 06/17/17 07:04 06/17/17 07:04 - Constitutional Appears: Non-toxic, Chronically Ill - Head Exam Head Exam: NORMOCEPHALIC - Eye Exam Eye Exam: PERRL - ENT Exam ENT Exam: Mucous Membranes Dry - Neck Exam Neck Exam: absent: Lymphadenopathy - Respiratory Exam Respiratory Exam: Decreased Breath Sounds - Cardiovascular Exam Cardiovascular Exam: REGULAR RHYTHM - GI/Abdominal Exam GI & Abdominal Exam: Distended, Soft - Rectal Exam Rectal Exam: Deferred - Exam Exam: NORMAL INSPECTION Assessment and Plan (1) Leukocytosis Status: Acute (2) Wilsons disease Status: Acute (3) Abdominal pain Status: Acute
--- NOTE | 2017-06-17 12:42 | CARD ---
APPROVED REPORT EKG Measurement Heart [id number] <Conclusion> Normal sinus rhythm ST elevation, probably due to early repolarization Borderline ECG
--- NOTE | 2017-06-17 21:59 | CP.PCM.PN ---
Subjective - Date & Time of Evaluation Date of Evaluation: 06/17/17 Objective - Vital Signs/Intake and Output Vital Signs (last 24 hours): Temp Pulse Resp BP Pulse Ox 97.7 F 50 L 20 133/82 99 06/17/17 08:17 06/17/17 08:17 06/17/17 08:17 06/17/17 08:17 06/17/17 08:17 Intake and Output: 06/17/17 06/18/17 18:59 06:59 Intake Total 350 Balance 350 - Labs Labs: 06/17/17 07:04 06/17/17 07:04
== END 2017-06-17 15:53 | disposition home or self-care (01) | DRG 386 ==
LOC: C.ER 07:31 → C.9E 12:31 → C.3T 14:59 → OBSVTOIN 06-15 15:18
PROVIDERS: ADMIT Internal Medicine Nephrology; ATTEND Internal Medicine Nephrology
DX: K51.90 Ulcerative colitis, unspecified, without complications (principal); Z94.4 Liver transplant status; E83.01 Wilson's disease; I10 Essential (primary) hypertension; D64.9 Anemia, unspecified; E10.9 Type 1 diabetes mellitus without complications; D72.829 Elevated white blood cell count, unspecified; Z79.4 Long term (current) use of insulin; Z90.49 Acquired absence of other specified parts of digestive tract; Z93.2 Ileostomy status